=== PATIENT | female | born 1990 | race Caucasian/White ===

== ENCOUNTER → 2018-01-15 | Emergency (ER) | payer OTHER ==
[~2018-01-15] VITALS: Ht 157.5 cm; Wt 52.2 kg
[~2018-01-15] MED LIST: INTESTINEX680 M1 PO; ZANTAC150 MG PO
== END | disposition home or self-care (01) ==
LOC: ER 10:51
DX: K29.00 Acute gastritis without bleeding (principal)

== ENCOUNTER 2019-05-08 10:18 | Outpatient (CLI) | payer OTHER | END 2019-05-08 10:19 | disposition home or self-care (01) | LOC: RAD 10:18 | DX: O00.101 Right tubal pregnancy without intrauterine pregnancy (principal) ==

== ENCOUNTER 2019-05-10 13:08 | Emergency (ER) | payer OTHER ==
[~2019-05-10] VITALS: Ht 157.5 cm; Wt 51.3 kg
== END 2019-05-10 18:51 | disposition home or self-care (01) ==
LOC: ER 13:08
DX: O00.80 Other ectopic pregnancy without intrauterine pregnancy (principal)

== ENCOUNTER 2019-05-12 07:51 | Outpatient (CLI) | payer OTHER | END 2019-05-12 07:53 | disposition home or self-care (01) | LOC: SONOGRAMA 07:51 | DX: O00.01 Abdominal pregnancy with intrauterine pregnancy (principal) ==

== ENCOUNTER 2019-12-16 10:45 | Inpatient (IN) | payer OTHER ==
[~2019-12-16] VITALS: Ht 157.5 cm; Wt 4.1 kg
[2019-12-30] MEDS ORDERED: VALTREX1000 MG PO (15:56)
== END 2020-01-10 13:55 | disposition home or self-care (01) | DRG 787 ==
LOC: O/R 01-07 06:45 → OB/GYN 01-07 07:00
PROVIDERS: ADMIT Specialist; ATTEND Specialist
PROC: 4A1HXFZ Monitoring of Products of Conception, Cardiac Rhythm, External Approach (ICD-10-PCS; 2020-01-07)
PROC: 3E033VJ Introduction of Other Hormone into Peripheral Vein, Percutaneous Approach (ICD-10-PCS; 2020-01-07)
PROC: 10D00Z1 Extraction of Products of Conception, Low, Open Approach (ICD-10-PCS; principal; 2020-01-07 07:00)
DX: O64.1XX0 Obstructed labor due to breech presentation, not applicable or unspecified (principal); O98.52 Other viral diseases complicating childbirth; Z3A.39 39 weeks gestation of pregnancy; Z37.0 Single live birth

== ENCOUNTER → 2025-06-17 | Emergency (ER) | payer OTHER ==
[~2025-06-17] VITALS: Ht 157.5 cm; Wt 54.0 kg
[~2025-06-17] MED LIST changes: +VALTREX1000 MG PO
[2025-06-17 12:26] VITALS: BP 106/69
== END | disposition left against medical advice (07) ==
LOC: ER 11:06
DX: O20.8 Other hemorrhage in early pregnancy (principal); Z3A.01 Less than 8 weeks gestation of pregnancy